=== PATIENT | female | born 1940 | race Caucasian/White ===

== ENCOUNTER 2017-08-07 12:32 | Inpatient (IN) | payer OTHER ==
[~2017-08-07] VITALS: Ht 152.4 cm; Wt 43.0 kg
[~2017-08-07 12:32] MED LIST: LATANOPROST2.5 ML BOTH EYES; NICOTINE PATCH1 EAC2 TD; ROCEPHIN1000 MG IV
[2017-08-07 13:35] LABS: HEMOGLOBIN 12.8 G/DL (11.9-15.5); MCH 31.1 PG (29.0-34.0); MCHC 33.7 G/DL (30.0-36.0); MCV 92.2 FL (83-99); PLATELET COUNT 488 K/uL (156-360); RBC DIS.WIDTH-CV 13.2 % (11.8-14.6); RBC DIS.WIDTH-SD 45.1 % (39-53); RED BLOOD COUNT 4.12 M/uL (3.80-5.20); WHITE BLOOD COUNT 21.7 K/uL (4.1-10.2)
[2017-08-07 13:42] LABS: ALBUMIN 3.8 g/dL (3.2-4.8); CHLORIDE 106 mEq/L (99-109); POTASSIUM 3.8 mEq/L (3.7-5.4); SODIUM 141 mEq/L (136-147)
[2017-08-07 13:45] LABS: GLUCOSE 95 mg/dL (70-99); TOTAL PROTEIN 7.5 g/dL (6.4-8.3)
[2017-08-07 13:46] LABS: TOTAL BILIRUBIN 0.7 mg/dL (0.0-1.0)
[2017-08-07 13:48] LABS: ALKALINE PHOSPHATASE 87 IU/L (3-129); CREATININE 0.6 mg/dL (0.6-1.3); GFR ESTIMATE (CALCULATED) > 59 mL/min/
[2017-08-07 13:49] LABS: UREA NITROGEN (BUN) 33 mg/dL (9-23)
[2017-08-07 13:50] LABS: AST (GOT) 45 IU/L (2-34)
[2017-08-07 13:51] LABS: ALT (GPT) 29 IU/L (3-49); CREATINE KINASE 815 IU/L (1-294)
[2017-08-07 15:45] LABS: APPEARANCE CLOUDY ((CLEAR)); BILIRUBIN NEGATIVE; BLOOD NEGATIVE; COLOR YELLOW ((YELLOW)); GLUCOSE (STRIP) NEGATIVE; KETONES 20; LEUKOCYTES NEGATIVE; NITRITE NEGATIVE; PROTEIN (STRIP) 30; SPECIFIC GRAVITY 1.026 (1.000-1.030); UROBILINOGEN 0.2 MG/DL (0.2-1.0)
[2017-08-07 15:50] LABS: BACTERIA RARE /HPF; EPITHELIAL CELLS RARE /HPF; HYALINE CASTS 0-5 /LPF; MUCUS 1+ /LPF
[2017-08-07 19:49] VITALS: BP 123/57
[2017-08-08 00:37] VITALS: BP 113/53
[2017-08-08 06:16] LABS: CHLORIDE 108 MEQ/L (99-109); CREATININE 0.4 MG/DL (0.6-1.3); GFR ESTIMATE (CALCULATED) > 59 mL/min/; GLUCOSE 73 mg/dL (70-99); POTASSIUM 3.6 MEQ/L (3.7-5.4); SODIUM 141 MEQ/L (136-147); UREA NITROGEN (BUN) 24 mg/dL (9-23)
[2017-08-08 08:20] VITALS: BP 115/60
[2017-08-08 10:12] LABS: CHLORIDE 107 MEQ/L (99-109); CREATINE KINASE 544 IU/L (1-294); CREATININE 0.4 MG/DL (0.6-1.3); GFR ESTIMATE (CALCULATED) > 59 mL/min/; POTASSIUM 3.9 MEQ/L (3.7-5.4); SODIUM 140 MEQ/L (136-147); UREA NITROGEN (BUN) 19 mg/dL (9-23)
[2017-08-08 10:13] LABS: GLUCOSE 94 mg/dL (70-99)
[2017-08-08 10:45] LABS: HEMATOCRIT 34.2 % (36.0-46.0); HEMOGLOBIN 11.4 G/DL (11.9-15.5); MCH 31.1 PG (29.0-34.0); MCHC 33.3 G/DL (30.0-36.0); MCV 93.4 FL (83-99); PLATELET COUNT 436 K/uL (156-360); RBC DIS.WIDTH-CV 13.6 % (11.8-14.6); RBC DIS.WIDTH-SD 46.3 % (39-53); RED BLOOD COUNT 3.66 M/uL (3.80-5.20); WHITE BLOOD COUNT 18.2 K/uL (4.1-10.2)
[2017-08-08 12:45] VITALS: BP 110/71
[2017-08-08 16:53] VITALS: BP 112/74
[2017-08-08 19:51] VITALS: BP 115/54
[2017-08-09 00:42] VITALS: BP 128/69
[2017-08-09 07:30] VITALS: BP 123/58
[2017-08-09 12:15] VITALS: BP 149/66
[2017-08-09 16:31] VITALS: BP 133/75
[2017-08-09 19:49] LABS: CHLORIDE 106 MEQ/L (99-109); CREATINE KINASE 275 IU/L (1-294); CREATININE 0.5 MG/DL (0.6-1.3); GFR ESTIMATE (CALCULATED) > 59 mL/min/; GLUCOSE 94 mg/dL (70-99); POTASSIUM 3.4 MEQ/L (3.7-5.4); SODIUM 139 MEQ/L (136-147); UREA NITROGEN (BUN) 9 mg/dL (9-23)
[2017-08-09 20:58] VITALS: BP 147/67
[2017-08-10 08:05] VITALS: BP 116/54
[2017-08-10 12:56] VITALS: BP 127/60
[2017-08-10 13:10] LABS: BASOPHIL (%) 0.7 % (0-1); BASOPHIL COUNT 0.1 K/uL (0-0.1); EOSINOPHIL COUNT 0.1 K/uL (0-0.3); HEMATOCRIT 32.5 % (36.0-46.0); HEMOGLOBIN 10.8 G/DL (11.9-15.5); IMMATURE GRANULOCYTE (%) 0.5 % (0.0-0.7); LYMPHOCYTE (%) 15.6 % (15-42); LYMPHOCYTE COUNT 1.9 K/uL (1.0-2.8); MCH 30.3 PG (29.0-34.0); MCHC 33.2 G/DL (30.0-36.0); MCV 91.3 FL (83-99); MONOCYTE (%) 16.6 % (3-12); NEUTROPHIL (%) 65.6 % (45-76); NEUTROPHIL COUNT 7.8 K/uL (1.8-6.4); PLATELET COUNT 402 K/uL (156-360); RBC DIS.WIDTH-CV 13.4 % (11.8-14.6); RBC DIS.WIDTH-SD 45.2 % (39-53); RED BLOOD COUNT 3.56 M/uL (3.80-5.20); WHITE BLOOD COUNT 11.9 K/uL (4.1-10.2)
[2017-08-10 13:40] LABS: CHLORIDE 105 MEQ/L (99-109); CREATININE 0.4 MG/DL (0.6-1.3); GFR ESTIMATE (CALCULATED) > 59 mL/min/; GLUCOSE 78 mg/dL (70-99); POTASSIUM 4.1 MEQ/L (3.7-5.4); SODIUM 139 MEQ/L (136-147); UREA NITROGEN (BUN) 10 mg/dL (9-23)
[2017-08-10 17:05] VITALS: BP 159/72
[2017-08-10 23:16] VITALS: BP 139/64
[2017-08-11 03:26] VITALS: BP 145/67
[2017-08-11 03:39] VITALS: BP 126/75
[2017-08-11 06:28] LABS: BASOPHIL (%) 0.6 % (0-1); BASOPHIL COUNT 0.1 K/uL (0-0.1); EOSINOPHIL (%) 2.2 % (0-5); EOSINOPHIL COUNT 0.3 K/uL (0-0.3); HEMATOCRIT 31.3 % (36.0-46.0); HEMOGLOBIN 10.3 G/DL (11.9-15.5); IMMATURE GRANULOCYTE (%) 0.4 % (0.0-0.7); LYMPHOCYTE (%) 15.7 % (15-42); LYMPHOCYTE COUNT 1.9 K/uL (1.0-2.8); MCH 29.9 PG (29.0-34.0); MCHC 32.9 G/DL (30.0-36.0); MONOCYTE (%) 17.9 % (3-12); MONOCYTE COUNT 2.2 K/uL (0-0.8); NEUTROPHIL (%) 63.2 % (45-76); NEUTROPHIL COUNT 7.6 K/uL (1.8-6.4); PLATELET COUNT 403 K/uL (156-360); RBC DIS.WIDTH-CV 13.4 % (11.8-14.6); RBC DIS.WIDTH-SD 44.4 % (39-53); RED BLOOD COUNT 3.44 M/uL (3.80-5.20)
[2017-08-11 06:52] LABS: CHLORIDE 107 MEQ/L (99-109); CREATININE 0.4 MG/DL (0.6-1.3); GFR ESTIMATE (CALCULATED) > 59 mL/min/; GLUCOSE 84 mg/dL (70-99); POTASSIUM 3.8 MEQ/L (3.7-5.4); SODIUM 142 MEQ/L (136-147); UREA NITROGEN (BUN) 8 mg/dL (9-23)
[2017-08-11] MEDS ORDERED: TYLENOL REGULA325 MG PO (11:06)
[2017-08-11] MEDS ORDERED: ANTIVERT25 MG PO (11:06)
[2017-08-11] MEDS ORDERED: NICOTINE PATCH1 EAC2 TD (11:06)
[2017-08-11 12:44] VITALS: BP 138/63
== END 2017-08-11 14:15 | DRG 558 ==
LOC: EME 12:32 → 5WEST 16:13 → EDOF 16:13 → ENRESERV 16:21 → 5WEST 19:18
PROVIDERS: Internal Medicine; Nurse Practitioner Adult Health; Physician Assistant; Physician Assistant Medical
DX: M62.82 Rhabdomyolysis (principal); N39.0 Urinary tract infection, site not specified; J44.9 Chronic obstructive pulmonary disease, unspecified; R26.9 Unspecified abnormalities of gait and mobility; R42 Dizziness and giddiness; I73.00 Raynaud's syndrome without gangrene; F17.200 Nicotine dependence, unspecified, uncomplicated; Z91.81 History of falling; Z89.011 Acquired absence of right thumb
CPT/HCPCS: 71046; 80048; 80048 91; 80053; 81003; 82550; 85025; 85027; 97530 GP; 99281; 99285; G0378; G8978 GP CJ; G8979 GP CH; G8987 GO CJ; G8988 CI; J0696; J1650; J7030; J7040